=== PATIENT | female | born 1985 | race African-American/Black ===

== ENCOUNTER 2018-11-05 12:22 | Emergency (ER) | payer OTHER ==
[~2018-11-05] VITALS: Ht 165.1 cm; Wt 58.0 kg
[~2018-11-05 12:22] MED LIST: NAPR-985 PO
[2018-11-05 12:28] VITALS: BP 150/89; PULSE 95; RESP 17; Ht 165.1 cm; Wt 58.0 kg
[2018-11-05] MEDS ORDERED: LIDOCAINE 1% (MPF) 5 ML VIAL INJ ONE (13:00)
--- NOTE | 2018-11-05 14:19 | ERD ---
ER Documentation Chief Complaint Chief Complaint INGROWN TOE NAIL PAIN, RIGHT HPI 33-year-old female presenting with ingrown toenail to the right great toe. She states is been going for the last week progressively getting worse. She denies any numbness or tingling and has not taken medications or used creams for the affected areas. Denies other medical problems. NKDA. Surgical history denies. Social history denies ROS All systems reviewed and are negative except as per history of present illness. Medications Home Meds Active Scripts Naproxen* (Naprosyn*) 500 Mg Tablet, 500 MG PO BID PRN for PAIN AND/OR INFLAMMATION, #30 TAB Prov:STEPHANIE BOLDEN PA-C 11/05/18 PMhx/Soc Medical and Surgical Hx: pt denies Medical Hx, pt denies Surgical Hx Hx Alcohol Use: No Hx Substance Use: No Hx Tobacco Use: No Smoking Status: Never smoker FmHx Family History: No diabetes, No coronary disease, No other Physical Exam Vitals Vital Signs Date Temp Pulse Resp B/P (MAP) Pulse Ox O2 O2 Flow FiO2 Time Delivery Rate 11/05/18 98.0 95 17 150/89 98 12:28 (109) Physical Exam GENERAL: The patient is well-appearing, well-nourished, in no acute distress CHEST: Clear to auscultation bilaterally. There are no rales, wheezes or rhonchi. HEART: Regular rate and rhythm. No murmurs, clicks, rubs or gallops. EXTREMITIES: Equal pulses bilaterally. There is no peripheral clubbing, cyanosis or edema. No focal swelling or erythema. Full range of motion. Grossly neurovascularly intact. NEUROLOGIC: Alert and oriented. Cranial nerves II through XII intact. Motor strength in all 4 extremities with 5 out of 5 strength. Sensation grossly intact. SKIN: Erythema noted to the lateral portion of the toenail with no fluctuance. No induration. Tender to palpation Results 24 hrs Current Medications Medications Dose Sig/Samira Start Time Status Last (Trade) Ordered Route PRN Stop Time Admin Dose Reason Admin Lidocaine 5 ml ONCE ONCE 11/05/18 DC (Xylocaine INJ 13:00 1% (Mpf)) 11/05/18 13:01 Procedures/MDM ER course: Digital block applied in the ED. Patient is adequately numbed. Medial portion of the right great toenail was removed without complication. Site was cleaned and bandage applied. MDM: 33-year-old female presenting with ingrown toenail to the right great toe. I have low suspicion for deep tracking infection I have low suspicion for retained foreign body. Patient is discharged with medication and cream and told to soak at home with warm water. Medial portion of the nail was removed without complication. Patient is discharged with strict your precautions and told to follow-up with primary care. All questions answered at discharge Departure Diagnosis: Primary Impression: Ingrown toenail Condition: Stable Patient Instructions: Ingrown Toenail, Excised Referrals: [facility] YOU HAVE RECEIVED A MEDICAL SCREENING EXAM AND THE RESULTS INDICATE THAT YOU DO NOT HAVE A CONDITION THAT REQUIRES URGENT TREATMENT IN THE EMERGENCY DEPARTMENT. FURTHER EVALUATION AND TREATMENT OF YOUR CONDITION CAN WAIT UNTIL YOU ARE SEEN IN YOUR DOCTORS OFFICE WITHIN THE NEXT 1-2 DAYS. IT IS YOUR RESPONSIBILITY TO MAKE AN APPOINTMENT FOR FOLOW-UP CARE. IF YOU HAVE A PRIMARY DOCTOR --you should call your primary doctor and schedule an appointment IF YOU DO NOT HAVE A PRIMARY DOCTOR YOU CAN CALL OUR PHYSICIAN REFERRAL HOTLINE AT IF YOU CAN NOT AFFORD TO SEE A PHYSICIAN YOU CAN CHOSE FROM THE FOLLOWING [facility] [address] [facility]. [facility] [address] [facility] [facility] [address] [facility] [facility] [address] [facility]. [facility] [address] [facility]. [facility]. [address] Additional Instructions: FOLLOW UP WITH YOUR PRIMARY CARE PHYSICIAN TOMORROW.Return to this facility if you are not improving as expected. STEPHANIE BOLDEN PA-C Nov 05, 2018 14:18
== END 2018-11-05 13:55 | disposition home or self-care (01) ==
LOC: FTE 12:22
DX: L60.0 Ingrowing nail (principal)
CPT/HCPCS: 11765; Z7502; Z7610